=== PATIENT | male | born 1975 | race American Indian/Alaskan Native ===

== ENCOUNTER 2018-12-10 19:33 | Emergency (ER) | payer MEDICARE ==
--- NOTE | 2018-12-10 20:52 | Emergency Department Report ---
Blank Doc - Documentation Documentation: This is a 43-year-old male that presents with abdominal pain. Denies any n/v. Stated also has headache. Denies any visual changes. Exam: neuro exam normal. Normal strength. No facial drooping. No one-sided weakness. This initial assessment/diagnostic orders/clinical plan/treatment(s) is/are subject to change based on patient's health status, clinical progression and re- assessment by fellow clinical providers in the ED. Further treatment and workup at subsequent clinical providers discretion. Patient/guardians urged not to elope from the ED as their condition may be serious if not clinically assessed and managed. Initial orders include: 1- Patient sent to [facility] for further evaluation and treatment 2- labs
[2018-12-10 20:54] VITALS: BP 180/110
[2018-12-10 21:26] LABS: Basophils % (Auto) 0.4 % (0.0-1.8); Eosinophils % (Auto) 0.3 % (0.0-4.3); Hematocrit 37.7 % (35.5-45.6); Hemoglobin 12.1 gm/dl (11.8-15.2); Lymphocytes # (Auto) 1.6 K/mm3 (1.2-5.4); Lymphocytes % (Auto) 26.9 % (13.4-35.0); Mean Corpuscular HGB Conc 32 % (32-34); Mean Corpuscular Volume 86 fl (84-94); Monocytes # (Auto) 0.5 K/mm3 (0.0-0.8); Monocytes % (Auto) 8.9 % (0.0-7.3); Platelet Count 192 K/mm3 (140-440); Red Blood Count 4.41 M/mm3 (3.65-5.03); Red Cell Distribution Width 15.5 % (13.2-15.2)
[2018-12-10 21:40] LABS: Alanine Aminotransferase 12 units/L (7-56); Albumin 4.2 g/dL (3.9-5); BUN/Creatinine Ratio 15; Blood Urea Nitrogen 12 mg/dL (9-20); Calcium 9.1 mg/dL (8.4-10.2); Hemolysis Index 2
[2018-12-10 21:52] LABS: Bilirubin,Direct < 0.2 mg/dL (0-0.2)
--- NOTE | 2018-12-10 23:15 | Cat Scan Report ---
PROCEDURE: CT HEAD/BRAIN WO CON TECHNIQUE: Spiral CT imaging of the brain was obtained without the use of IV contrast. HISTORY: headache with HTN COMPARISONS: None FINDINGS: Brain: Brain density appears normal. No evidence of intracranial hemorrhage. No parenchymal hemorr tyrone, mass lesions or mass effect are seen. No abnormal extra-axial fluid collects or masses are see n. Ventricles: Ventricles are normal size and are midline. Bone Windows: No evidence of skull fracture. Paranasal sinuses: There is mild nodularity seen laterally in the right maxillary sinus suggesting sm all polyps or mucous retention cyst. Visualized portions of the paranasal sinuses otherwise appear cl ear. Mastoid air cells: Clear. IMPRESSION: Negative unenhanced CT scan of the brain. Mild paranasal sinus disease as described. This document is electronically signed by Demian Elaine MD., Dec 10 2018 11:13:59 PM ET
[2018-12-11 01:09] LABS: Bilirubin,Urine NEG (Negative); Blood,Urine NEG (Negative); Color,Urine Yellow (Yellow); Mucus,Urine 2+ /HPF; Protein,Urine <15 mg/dL mg/dL (Negative)
--- NOTE | 2018-12-11 01:11 | Emergency Department Report ---
ED ENT HPI - General Chief complaint: Abdominal Pain Stated complaint: POSS HERNIA/JAW & HEAD PAIN Time Seen by Provider: 12/10/18 20:50 Source: patient Mode of arrival: Ambulatory Limitations: No Limitations - History of Present Illness Initial comments: Patient is a 43-year-old -[place] male with a history of gastric bypass and recurring dental caries patient denies abdominal pain of diseases not be seen for abdominal complaints today even though that was stated triage patient states his primary contact complaint is dental pain, states right upper dental pain x 1 week , recurring for past yr but has been unable to see dentist, there is no fever no chills no facial or jaw swelling no stridor no ear or throat pain pt is tolerating po intake without n/v. pt MD complaint: tooth pain Onset/Timin -: week(s) Location: tooth # (3) Severity: moderate Severity scale (0 -10): 5 Quality: aching Consistency: constant Improves with: none Worsens with: eating, other (hot and cold stimuli) Context- Dental: history of dental caries, poor dental care Associated Symptoms: toothache. denies: fever, cough, gum swelling, pain with swallowing, sore throat, tinnitus, hearing loss, discharge from ear, rhinorrhea - Related Data Previous Rx's Medication Instructions Recorded Last Taken Type Chlorhexidine Mouthwash [Peridex] 15 ml MM BID #1 bottle 12/11/18 Unknown Rx Clindamycin [Clindamycin CAP] 300 mg PO Q8H 10 Days #30 cap 12/11/18 Unknown Rx traMADol [Ultram] 50 mg PO Q6HR PRN #12 tablet 12/11/18 Unknown Rx Allergies Allergy/AdvReac Type Severity Reaction Status Date / Time No Known Allergies Allergy Verified 12/10/18 19:38 ED Dental HPI - General Chief complaint: Abdominal Pain Stated complaint: POSS HERNIA/JAW & HEAD PAIN Time Seen by Provider: 12/10/18 20:50 Source: patient Mode of arrival: Ambulatory Limitations: No Limitations - Related Data Previous Rx's Medication Instructions Recorded Last Taken Type Chlorhexidine Mouthwash [Peridex] 15 ml MM BID #1 bottle 12/11/18 Unknown Rx Clindamycin [Clindamycin CAP] 300 mg PO Q8H 10 Days #30 cap 12/11/18 Unknown Rx traMADol [Ultram] 50 mg PO Q6HR PRN #12 tablet 12/11/18 Unknown Rx Allergies Allergy/AdvReac Type Severity Reaction Status Date / Time No Known Allergies Allergy Verified 12/10/18 19:38 ED Review of Systems ROS: Stated complaint: POSS HERNIA/JAW & HEAD PAIN Other details as noted in HPI Constitutional: denies: chills, fever Eyes: denies: eye pain, eye discharge, vision change ENT: dental pain. denies: ear pain, throat pain, hearing loss, epistaxis, congestion Respiratory: denies: cough, shortness of breath, wheezing Cardiovascular: denies: chest pain, palpitations Endocrine: no symptoms reported Gastrointestinal: denies: abdominal pain, nausea, vomiting, diarrhea Genitourinary: denies: urgency, dysuria Musculoskeletal: denies: back pain, joint swelling, arthralgia Skin: denies: rash, lesions Neurological: denies: headache, weakness, paresthesias Psychiatric: denies: anxiety, depression Hematological/Lymphatic: denies: easy bleeding, easy bruising ED Past Medical Hx - Social History Smoking Status: Current Every Day Smoker Substance Use Type: None - Medications Home Medications: Home Medications Medication Instructions Recorded Confirmed Last Taken Type Chlorhexidine Mouthwash [Peridex] 15 ml MM BID #1 bottle 12/11/18 Unknown Rx Clindamycin [Clindamycin CAP] 300 mg PO Q8H 10 Days #30 cap 12/11/18 Unknown Rx traMADol [Ultram] 50 mg PO Q6HR PRN #12 tablet 12/11/18 Unknown Rx ED Physical Exam - General Limitations: No Limitations General appearance: alert, in no apparent distress - Head Head exam: Present: atraumatic, normocephalic, normal inspection - Eye Eye exam: Present: normal appearance, PERRL, EOMI Pupils: Present: normal accommodation - ENT ENT exam: Present: mucous membranes moist - Expanded ENT Exam Expanded Ear exam: Present: normal external inspection Mouth exam: Present: tongue normal. Absent: trismus Teeth exam: Present: dental caries, dental tenderness # (3), other (no focal abscess ). Absent: gingival enlargement Throat exam: Positive: normal inspection. Negative: tonsillar erythema, tonsillomegaly, tonsillar exudate, R peritonsillar mass, L peritonsillar mass - Neck Neck exam: Present: normal inspection, full ROM. Absent: tenderness, meningismus, lymphadenopathy, thyromegaly - Respiratory Respiratory exam: Present: normal lung sounds bilaterally. Absent: respiratory distress, wheezes, stridor, chest wall tenderness - Cardiovascular Cardiovascular Exam: Present: regular rate, normal rhythm, normal heart sounds. Absent: systolic murmur, diastolic murmur, rubs, gallop - GI/Abdominal GI/Abdominal exam: Present: soft, normal bowel sounds. Absent: distended, tenderness, guarding, rebound, rigid, bruit, pulsatile mass, hernia - Expanded GI/Abdominal Exam Expanded GI/Abdominal exam: Absent: psoas sign, obturator sign, heel tap sign, Chandler's sign, Rovsing's sign, tenderness at [place]'s Point, ascites - Rectal Rectal exam: Present: deferred - Extremities Exam Extremities exam: Present: normal inspection, full ROM, normal capillary refill. Absent: tenderness, pedal edema, joint swelling - Back Exam Back exam: Present: normal inspection, full ROM, muscle spasm. Absent: tenderness, CVA tenderness (R), CVA tenderness (L), paraspinal tenderness, vertebral tenderness, rash noted - Neurological Exam Neurological exam: Present: alert, oriented X3, CN II-XII intact, normal gait, reflexes normal. Absent: motor sensory deficit - Psychiatric Psychiatric exam: Present: normal affect, normal mood - Skin Skin exam: Present: warm, dry, intact, normal color. Absent: rash ED Course Vital Signs 12/10/18 12/10/18 20:04 20:51 Temperature 98.9 F 98.9 F Pulse Rate 75 75 Respiratory 18 18 Rate Blood Pressure 180/110 180/110 O2 Sat by Pulse 98 98 Oximetry ED Medical Decision Making - Lab Data Result diagrams: 12/10/18 20:56 12/10/18 20:56 Labs 12/10/18 12/10/18 12/11/18 20:56 20:56 00:36 WBC 5.9 RBC 4.41 Hgb 12.1 Hct 37.7 MCV 86 MCH 28 MCHC 32 RDW 15.5 H Plt Count 192 Lymph % (Auto) 26.9 [place] % (Auto) 8.9 H Eos % (Auto) 0.3 Baso % (Auto) 0.4 Lymph # 1.6 [place] # 0.5 Eos # 0.0 Baso # 0.0 Seg Neutrophils % 63.5 Seg Neutrophils # 3.8 Sodium 142 Potassium 4.6 Chloride 101.9 Carbon Dioxide 30 Anion Gap 15 BUN 12 Creatinine 0.8 Estimated GFR > 60 BUN/Creatinine Ratio 15 Glucose 105 H Calcium 9.1 Total Bilirubin 0.20 Direct Bilirubin < 0.2 Indirect Bilirubin 0.0 AST 16 ALT 12 Alkaline Phosphatase 99 Total Protein 7.9 Albumin 4.2 Albumin/Globulin Ratio 1.1 Lipase 24 Urine Color Yellow Urine Turbidity Slightly-cloudy Urine pH 5.0 Ur Specific [place] 1.028 Urine Protein <15 mg/dl Urine Glucose (UA) Neg Urine Ketones Tr Urine Blood Neg Urine Nitrite Neg Urine Bilirubin Neg Urine Urobilinogen 2.0 Ur Leukocyte Esterase Neg Urine WBC (Auto) 12.0 H Urine RBC (Auto) 2.0 U Epithel Cells (Auto) 6.0 Urine Mucus 2+ - Medical Decision Making this is infected dental carries without abscess to #3 plan, clindamycin , ultram, peridex, follow up with dentist in 2-3 days pt verbalized agreement and understanding of discharge plan, pt is tolerating po intake will folllow up with dentist tomorrow , given referral to [facility]. pt dc'd to home in stable condition at this time. Critical care attestation.: If time is entered above; I have spent that time in minutes in the direct care of this critically ill patient, excluding procedure time. ED Disposition Clinical Impression: Infected dental carries Disposition: DC-01 TO HOME OR SELFCARE Is pt being admited?: No Does the pt Need Aspirin: No Condition: Stable Instructions: Dental Caries (ED) Prescriptions: Clindamycin [Clindamycin CAP] 300 mg PO Q8H 10 Days #30 cap Chlorhexidine Mouthwash [Peridex] 15 ml MM BID #1 bottle traMADol [Ultram] 50 mg PO Q6HR PRN #12 tablet PRN Reason: Pain Referrals: PRIMARY CARE, [Primary Care Provider] - 3-5 Days [facility] [Outside] - 3-5 Days Forms: Work/School Release Form(ED) Time of Disposition: 01:25
[2018-12-11] MEDS ORDERED: ULTRAM PO ONE (01:39)
[2018-12-11] MEDS ORDERED: IBUPROFEN PO ONE ×3 (01:41→01:43)
[2018-12-11] MEDS ORDERED: ULTRAM ONE (01:41)
== END 2018-12-11 01:45 | disposition home or self-care (01) ==
LOC: ED 19:33
DX: K02.9 Dental caries, unspecified (principal); F17.200 Nicotine dependence, unspecified, uncomplicated
CPT/HCPCS: 36415; 70450; 80048; 80076; 81001; 82962; 83690; 85025; 99284

== ENCOUNTER 2019-02-02 17:17 | Emergency (ER) | payer MEDICARE ==
[2019-02-02 18:12] LABS: Basophils % (Auto) 0.3 % (0.0-1.8); Eosinophils % (Auto) 0.1 % (0.0-4.3); Hematocrit 35.8 % (35.5-45.6); Hemoglobin 11.5 gm/dl (11.8-15.2); Lymphocytes % (Auto) 9.3 % (13.4-35.0); Mean Corpuscular HGB Conc 32 % (32-34); Mean Corpuscular Volume 87 fl (84-94); Monocytes # (Auto) 0.5 K/mm3 (0.0-0.8); Monocytes % (Auto) 4.3 % (0.0-7.3); Platelet Count 198 K/mm3 (140-440); Red Blood Count 4.09 M/mm3 (3.65-5.03); Red Cell Distribution Width 16.2 % (13.2-15.2)
[2019-02-02 18:35] LABS: Alanine Aminotransferase 16 units/L (7-56); BUN/Creatinine Ratio 16; Blood Urea Nitrogen 13 mg/dL (9-20); Calcium 8.6 mg/dL (8.4-10.2); Hemolysis Index 2
[2019-02-02] MEDS ORDERED: NORCO 5/325 PO ONE (19:33)
--- NOTE | 2019-02-02 19:38 | Emergency Department Report ---
HPI - General Chief Complaint: Abdominal Pain Time Seen by Provider: 02/02/19 19:21 - HPI HPI: Room 22 The patient is a 43-year-old male presenting with chief complaint abdominal pain. Patient states he had a hernia repair in 2011. The patient states for the last week whenever he lifts heavy objects he feels pain in the central abdomen or his umbilicus was before surgery. The patient states that one time he noticed drainage of brown bloody fluid from his previous surgical site. Patient denies nausea vomiting or fever. Patient states his last bowel movement occurred today and was within normal limits. Patient denied bright red blood per rectum. The patient states he feels like the right side of the surgical scar is getting bigger than the left. Patient currently gives his abdominal pain a score of 7/10 Location: [See above] Duration: [See above] Quality: [See above] Severity: [See above] Modifying factors: [see above] Context: [see above] Mode of transportation: [not driving] ED Past Medical Hx - Past Medical History Previous Medical History?: Yes Hx Hypertension: Yes - Surgical History Past Surgical History?: Yes Additional Surgical History: hernia repair 2011. gastric bypass - Family History Family history: no significant - Social History Smoking Status: Current Every Day Smoker (1 pack per day) Substance Use Type: None (denies illicit drug use), Alcohol (frequently) - Medications Home Medications: Home Medications Medication Instructions Recorded Confirmed Last Taken Type Chlorhexidine Mouthwash [Peridex] 15 ml MM BID #1 bottle 12/11/18 Unknown Rx Clindamycin [Clindamycin CAP] 300 mg PO Q8H 10 Days #30 cap 12/11/18 Unknown Rx amLODIPine [Norvasc] 10 mg PO DAILY #30 tab 12/11/18 Unknown Rx traMADol [Ultram] 50 mg PO Q6HR PRN #12 tablet 12/11/18 Unknown Rx Ciprofloxacin HCl [Ciprofloxacin 500 mg PO Q12HR #14 tab 02/02/19 Unknown Rx TAB] traMADol [Ultram] 50 mg PO Q6HR PRN #14 tablet 02/02/19 Unknown Rx ED Review of Systems ROS: Stated complaint: ABD PAIN Other details as noted in HPI Constitutional: no symptoms reported Eyes: denies: eye pain ENT: denies: throat pain Respiratory: no symptoms reported Cardiovascular: denies: chest pain Endocrine: no symptoms reported Gastrointestinal: abdominal pain. denies: nausea, vomiting, diarrhea Genitourinary: denies: dysuria Musculoskeletal: denies: back pain Neurological: denies: headache Psychiatric: denies: depression Physical Exam - Physical Exam Vital Signs: Vital Signs 02/02/19 17:36 Temperature 99.3 F Pulse Rate 91 H Respiratory 18 Rate Blood Pressure 162/106 O2 Sat by Pulse 94 Oximetry Physical Exam: GENERAL: The patient is well-developed well-nourished male lying on stretcher not appear to be in acute distress. [] HEENT: Normocephalic. Atraumatic. Extraocular motions are intact. Patient has moist mucous membranes. NECK: Supple. Trachea midline CHEST/LUNGS: Clear to auscultation. There is no respiratory distress noted. HEART/CARDIOVASCULAR: Regular. There is no tachycardia. There is no gallop rub or murmur. ABDOMEN: Abdomen is soft, nontender. Patient has normal bowel sounds. There is no abdominal distention. Subcutaneous mass possibly scar tissue on the central surgical site. No definite hernia palpated SKIN: There is a circular region of the previous surgical site in the central abdomen that appears irritated. No discharge present. There is no diaphoresis. NEURO: The patient is awake, alert, and oriented. The patient is cooperative. The patient has normal speech MUSCULOSKELETAL: There is no evidence of acute injury. ED Course Vital Signs 02/02/19 17:36 Temperature 99.3 F Pulse Rate 91 H Respiratory 18 Rate Blood Pressure 162/106 O2 Sat by Pulse 94 Oximetry ED Medical Decision Making - Lab Data Result diagrams: 02/02/19 17:57 02/02/19 17:57 Laboratory Tests 02/02/19 02/02/19 02/02/19 17:57 17:57 19:50 WBC 10.8 RBC 4.09 Hgb 11.5 L Hct 35.8 MCV 87 MCH 28 MCHC 32 RDW 16.2 H Plt Count 198 Lymph % (Auto) 9.3 L [place] % (Auto) 4.3 Eos % (Auto) 0.1 Baso % (Auto) 0.3 Lymph # 1.0 L [place] # 0.5 Eos # 0.0 Baso # 0.0 Seg Neutrophils % 86.0 H Seg Neutrophils # 9.2 H Sodium 138 Potassium 4.1 Chloride 99.2 Carbon Dioxide 26 Anion Gap 17 BUN 13 Creatinine 0.8 Estimated GFR > 60 BUN/Creatinine Ratio 16 Glucose 67 L Calcium 8.6 Total Bilirubin 0.90 AST 22 ALT 16 Alkaline Phosphatase 95 Total Protein 7.4 Albumin 4.0 Albumin/Globulin Ratio 1.2 Urine Color Yellow Urine Turbidity Clear Urine pH 6.0 Ur Specific [place] 1.016 Urine Protein <15 mg/dl Urine Glucose (UA) Neg Urine Ketones 20 Urine Blood Neg Urine Nitrite Neg Urine Bilirubin Neg Urine Urobilinogen 2.0 Ur Leukocyte Esterase Neg Urine WBC (Auto) 1.0 Urine RBC (Auto) 2.0 U Epithel Cells (Auto) 1.0 Urine Mucus Few - Radiology Data Radiology results: report reviewed (CT abdomen and pelvis), image reviewed (CT abdomen and pelvis) [facility] [address] [place] [address] Cat Scan Report Signed Patient: MILA CRUMP MR#: [id number] [birth year] : 1975 Acct:[id number] Age/Sex: 43 / M ADM Date: 02/02/19 Loc: ED Attending Dr: Ordering Physician: JEROME MICHAELS MD Date of Service: 02/02/19 Procedure(s): CT abdomen pelvis w con Accession Number(s): [id number] cc: JEROME MICHAELS MD CT ABDOMEN AND PELVIS WITH CONTRAST HISTORY: central abdominal pain when lifting heavy objects. Patient has a history of umbilical hernia surgery in 2011 and also gastric bypass in 2007. COMPARISON: None. TECHNIQUE: CT images of the abdomen and pelvis were obtained following administration of intravenous contrast. All CT scans at this location are performed using CT dose reduction for ALARA by means of automated exposure control. CONTRAST: 100 ml of intravenous contrast administered. FINDINGS: Lungs/bones: There are a cluster of nodules in the right base notable for a 7 mm nodule on image #1 of series #2 and an adjacent calcified granuloma which is punctate. Lung bases are otherwise clear. There is mild DJD in the spine with no acute osseous abnormality identified. Abdomen/pelvis: The liver is enlarged with no discrete mass identified. The gallbladder is surgically absent. The spleen, pancreas, adrenals, and kidneys appear unremarkable. Gastric bypass changes are present. The proximal GI tract otherwise appears unremarkable. There is a small midline ventral fat-containing hernia with no significant i nflammatory change identified. Urinary bladder is partially collapsed. Prostate is unremarkable. No pelvic free fluid or acute colonic abnormality identified. The appendix is normal. IMPRESSION: 1. Small supraumbilical midline ventral wall hernia containing fat. No significant inflammatory change. 2. Additional incidental findings as above including a cluster of nodules in the right lung base measuring up to 7 mm. Given the clustering and mild surrounding groundglass, these findings are most likely infectious/inflammatory; however, follow-up to resolution recommended given nodularity. Signer Name: David Smalls MD Signed: 02/02/2019 8:21 PM Workstation Name: [id number] Transcribed By: BONITA Dictated By: David Smalls MD Electronically Authenticated By: David Smalls MD Signed Date/Time: 02/02/192020 DD/ 14 TD/TT: - Differential Diagnosis gastritis, hernia, Critical care attestation.: If time is entered above; I have spent that time in minutes in the direct care of this critically ill patient, excluding procedure time. ED Disposition Clinical Impression: Ventral hernia, Cellulitis of abdominal wall Disposition: DC-01 TO HOME OR SELFCARE Is pt being admited?: No Does the pt Need Aspirin: No Condition: Stable Instructions: Ventral Hernia (ED) Additional Instructions: Return to the emergency department immediately should you develop worsening symptoms, fever, inability to tolerate food or liquid or any other concerns. Prescriptions: Ciprofloxacin HCl [Ciprofloxacin TAB] 500 mg PO Q12HR #14 tab traMADol [Ultram] 50 mg PO Q6HR PRN #14 tablet PRN Reason: Pain Referrals: [facility] MD AZIZA [Primary Care Provider] - 3-5 Days FERNANDO SEGURA MD [Staff Physician] - 3-5 Days (Dr Segura is a general surgeon. Please follow up with him for further evaluation of your hernia) Time of Disposition: 20:37
[2019-02-02 20:21] LABS: Bilirubin,Urine NEG (Negative); Blood,Urine NEG (Negative); Color,Urine Yellow (Yellow); Mucus,Urine FEW /HPF; Protein,Urine <15 mg/dL mg/dL (Negative)
--- NOTE | 2019-02-02 20:25 | Cat Scan Report ---
CT ABDOMEN AND PELVIS WITH CONTRAST HISTORY: central abdominal pain when lifting heavy objects. Patient has a history of umbilical herni a surgery in 2012 and also gastric bypass in 2008. COMPARISON: None. TECHNIQUE: CT images of the abdomen and pelvis were obtained following administration of intravenous contrast. All CT scans at this location are performed using CT dose reduction for ALARA by means of automated exposure control. CONTRAST: 100 ml of intravenous contrast administered. FINDINGS: Lungs/bones: There are a cluster of nodules in the right base notable for a 7 mm nodule on image #1 of series #2 and an adjacent calcified granuloma which is punctate. Lung bases are otherwise clear. There is mild DJD in the spine with no acute osseous abnormality identified. Abdomen/pelvis: The liver is enlarged with no discrete mass identified. The gallbladder is surgicall y absent. The spleen, pancreas, adrenals, and kidneys appear unremarkable. Gastric bypass changes are present. The proximal GI tract otherwise appears unremarkable. There is a small midline ventral fat-containing hernia with no significant inflammatory change identi fied. Urinary bladder is partially collapsed. Prostate is unremarkable. No pelvic free fluid or acute colonic abnormality identified. The appendix is normal. IMPRESSION: 1. Small supraumbilical midline ventral wall hernia containing fat. No significant inflammatory foley e. 2. Additional incidental findings as above including a cluster of nodules in the right lung base padmini uring up to 7 mm. Given the clustering and mild surrounding groundglass, these findings are most like ly infectious/inflammatory; however, follow-up to resolution recommended given nodularity. Signer Name: David Smalls MD Signed: 02/02/2019 8:21 PM Workstation Name: [id number]
[2019-02-02 21:21] VITALS: BP 153/99
== END 2019-02-02 20:55 | disposition home or self-care (01) ==
LOC: ED 17:17
DX: K43.9 Ventral hernia without obstruction or gangrene (principal); L03.311 Cellulitis of abdominal wall; I10 Essential (primary) hypertension; F17.210 Nicotine dependence, cigarettes, uncomplicated; Z79.899 Other long term (current) drug therapy
CPT/HCPCS: 36415; 74177; 80053; 81001; 85025; 99284; Q9967

== ENCOUNTER 2019-02-10 13:24 | Emergency (ER) | payer MEDICARE ==
[2019-02-10] MEDS ORDERED: NACL 0.9% 1000 ML 1,000 ML IV ONE (14:01)
[2019-02-10] MEDS ORDERED: MORPHINE IV ONE (14:01)
[2019-02-10] MEDS ORDERED: ZOFRAN IV ONE (14:01)
--- NOTE | 2019-02-10 14:29 | Emergency Department Report ---
ED Abdominal Pain HPI - General Chief Complaint: Abdominal Pain Stated Complaint: ABD PAIN Time Seen by Provider: 02/10/19 13:42 Source: EMS Mode of arrival: Stretcher Limitations: No Limitations - History of Present Illness Initial Comments: 43-year-old male with history of hypertension, diabetes status post gastric bypass surgery and hernia repair surgery several years ago presents to ED with periumbilical abdominal pain. Patient was seen approximately one week ago for same abdominal pain. CT that time that showed small supraumbilical midline ve ntral hernia containing fat with no significant inflammatory change. Patient says pain has been progressively worsening since he was seen in the ER. Patient followed up with surgeon, Dr. Segura, 2 days ago. States at that time, Dr Segura stated that he would be unable to care for him appropriately (pt is unsure why) and referred him to another surgeon. Appointment scheduled for February 26. MD Complaint: abdominal pain -: week(s) (2) Location: periumbilical Radiation: none Migration to: no migration Severity: severe Severity scale (0 -10): 6 Quality: aching, sharp Consistency: constant Improves With: nothing Worsens With: nothing Associated Symptoms: diarrhea. denies: nausea, vomiting, fever, constipation - Related Data Previous Rx's Medication Instructions Recorded Last Taken Type Chlorhexidine Mouthwash [Peridex] 15 ml MM BID #1 bottle 12/11/18 Unknown Rx Clindamycin [Clindamycin CAP] 300 mg PO Q8H 10 Days #30 cap 12/11/18 Unknown Rx amLODIPine [Norvasc] 10 mg PO DAILY #30 tab 12/11/18 Unknown Rx traMADol [Ultram] 50 mg PO Q6HR PRN #12 tablet 12/11/18 Unknown Rx Ciprofloxacin HCl [Ciprofloxacin 500 mg PO Q12HR #14 tab 02/02/19 Unknown Rx TAB] traMADol [Ultram] 50 mg PO Q6HR PRN #14 tablet 02/02/19 Unknown Rx HYDROcodone/APAP 5-325 [[place] 1 each PO Q6HR PRN #10 tablet 02/10/19 Unknown Rx 5/325] Allergies Allergy/AdvReac Type Severity Reaction Status Date / Time No Known Allergies Allergy Verified 02/10/19 13:38 ED Review of Systems ROS: Stated complaint: ABD PAIN Other details as noted in HPI Comment: All other systems reviewed and negative Constitutional: denies: chills, fever Gastrointestinal: abdominal pain, diarrhea. denies: nausea, vomiting, constipation ED Past Medical Hx - Past Medical History Previous Medical History?: Yes Hx Hypertension: Yes - Surgical History Past Surgical History?: Yes Additional Surgical History: hernia repair 2012. gastric bypass - Social History Smoking Status: Current Every Day Smoker Substance Use Type: Alcohol - Medications Home Medications: Home Medications Medication Instructions Recorded Confirmed Last Taken Type Chlorhexidine Mouthwash [Peridex] 15 ml MM BID #1 bottle 12/11/18 Unknown Rx Clindamycin [Clindamycin CAP] 300 mg PO Q8H 10 Days #30 cap 12/11/18 Unknown Rx amLODIPine [Norvasc] 10 mg PO DAILY #30 tab 12/11/18 Unknown Rx traMADol [Ultram] 50 mg PO Q6HR PRN #12 tablet 12/11/18 Unknown Rx Ciprofloxacin HCl [Ciprofloxacin 500 mg PO Q12HR #14 tab 02/02/19 Unknown Rx TAB] traMADol [Ultram] 50 mg PO Q6HR PRN #14 tablet 02/02/19 Unknown Rx HYDROcodone/APAP 5-325 [[place] 1 each PO Q6HR PRN #10 tablet 02/10/19 Unknown Rx 5/325] ED Physical Exam - General Limitations: No Limitations General appearance: alert, in no apparent distress - Head Head exam: Present: atraumatic, normocephalic - Eye Eye exam: Present: normal appearance - ENT ENT exam: Present: mucous membranes moist - Neck Neck exam: Present: normal inspection - Respiratory Respiratory exam: Present: normal lung sounds bilaterally. Absent: respiratory distress - Cardiovascular Cardiovascular Exam: Present: regular rate, normal rhythm - GI/Abdominal GI/Abdominal exam: Present: soft, tenderness (periumbilical). Absent: distended - Extremities Exam Extremities exam: Present: normal inspection - Neurological Exam Neurological exam: Present: alert, oriented X3 - Psychiatric Psychiatric exam: Present: normal affect, normal mood - Skin Skin exam: Present: warm, dry, intact, normal color ED Course Vital Signs 02/10/19 02/10/19 02/10/19 13:39 13:53 13:55 Temperature 97.8 F Pulse Rate 72 69 Respiratory 16 16 Rate Blood Pressure 196/126 Blood Pressure 147/100 [Right] O2 Sat by Pulse 99 Oximetry 02/10/19 02/10/19 16:33 17:34 Temperature 97.6 F Pulse Rate 60 76 Respiratory 18 18 Rate Blood Pressure Blood Pressure 123/82 123/82 [Right] O2 Sat by Pulse 98 Oximetry ED Medical Decision Making - Lab Data Result diagrams: 02/10/19 14:24 02/10/19 14:24 - Radiology Data Radiology results: report reviewed, image reviewed - Medical Decision Making 43 yo M w/ abdominal pain, ventral hernia. Labs normal. Vitals normal. No emesis, pt reported diarrhea. CT shows no change in hernia, only fat- containing. No bowel obstruction present. Edema present in abdominal wall. Pt advised to f/u outpt. Return precautions given. - Differential Diagnosis gastroenteritis, bowel obstruction, hernia Critical care attestation.: If time is entered above; I have spent that time in minutes in the direct care of this critically ill patient, excluding procedure time. ED Disposition Clinical Impression: Abdominal pain Disposition: DC-01 TO HOME OR SELFCARE Is pt being admited?: No Condition: Stable Instructions: Abdominal Pain (ED) Prescriptions: HYDROcodone/APAP 5-325 [[place] 5/325] 1 each PO Q6HR PRN #10 tablet PRN Reason: Pain Referrals: JOSEPH SRERANO MD [Staff Physician] - 3-5 Days Forms: Work/School Release Form(ED) Time of Disposition: 17:10
[2019-02-10 14:41] LABS: Basophils % (Auto) 0.4 % (0.0-1.8); Eosinophils % (Auto) 0.5 % (0.0-4.3); Hematocrit 33.1 % (35.5-45.6); Hemoglobin 10.9 gm/dl (11.8-15.2); Lymphocytes # (Auto) 0.7 K/mm3 (1.2-5.4); Lymphocytes % (Auto) 14.1 % (13.4-35.0); Mean Corpuscular HGB Conc 33 % (32-34); Mean Corpuscular Volume 88 fl (84-94); Monocytes # (Auto) 0.4 K/mm3 (0.0-0.8); Monocytes % (Auto) 8.8 % (0.0-7.3); Platelet Count 213 K/mm3 (140-440); Red Blood Count 3.77 M/mm3 (3.65-5.03); Red Cell Distribution Width 16.2 % (13.2-15.2)
[2019-02-10 15:04] LABS: Alanine Aminotransferase 12 units/L (7-56); Albumin 3.6 g/dL (3.9-5); Blood Urea Nitrogen 18 mg/dL (9-20)
[2019-02-10 15:27] LABS: Bilirubin,Urine NEG (Negative); Blood,Urine NEG (Negative); Color,Urine Yellow (Yellow); Mucus,Urine 1+ /HPF; Protein,Urine <15 mg/dL mg/dL (Negative); Urobilinogen,Urine < 2.0 mg/dL (<2.0)
--- NOTE | 2019-02-10 15:39 | Cat Scan Report ---
CT ABDOMEN AND PELVIS WITH IV CONTRAST INDICATION: Diffuse abdominal pain. COMPARISON: None available. TECHNIQUE: Axial CT images were obtained through the abdomen and pelvis after 100 mm IV contrast. All CT scans a t this location are performed using CT dose reduction for ALARA by means of automated exposure contro l. FINDINGS -- ABDOMEN: Lung Bases: No change since the exam earlier this week. Liver: Normal. Gallbladder: Removed. Bile Ducts: Normal. Pancreas: Normal. Spleen: Normal. Adrenals: Normal. Right Kidney and Proximal Ureter: Normal. Left Kidney and Proximal Ureter: Normal. Stomach and Bowel: Normal. Lymph Nodes: No significant adenopathy. Aorta: No significant abnormality. IVC: Normal. Additional Findings: No change in ventral hernia, fat-containing. Worsening anasarca in the interim F INDINGS -- PELVIS: Urinary Bladder and Distal Ureters: Normal. Reproductive Organs: No change Appendix: Not well identified. Bowel: Nonobstructed. No significant new abnormality Free Fluid: Minimal free pelvic fluid. Lymph Nodes: No significant adenopathy. Additional Findings: None. Skeletal System: No acute abnormality. IMPRESSION: Worsening diffuse body wall anasarca since 02/02/2019. Otherwise, no change. No bowel obstruction. Signer Name: Tomi Sauceda MD Signed: 02/10/2019 3:35 PM Workstation Name: [id number]
[2019-02-10 16:05] LABS: Calcium 8.6 mg/dL (8.4-10.2); Hemolysis Index 2
[2019-02-10 16:14] LABS: BUN/Creatinine Ratio 20
[2019-02-10 16:34] VITALS: BP 123/82
== END 2019-02-10 17:34 | disposition home or self-care (01) ==
LOC: ED 13:24
DX: K43.9 Ventral hernia without obstruction or gangrene (principal); R19.7 Diarrhea, unspecified; R60.0 Localized edema; I10 Essential (primary) hypertension; F17.200 Nicotine dependence, unspecified, uncomplicated; Z79.899 Other long term (current) drug therapy; Z98.890 Other specified postprocedural states
CPT/HCPCS: 36415; 74177; 80053; 81001; 83690; 85025; 96361; 96374; 96375; 99284; J2270; J2405; J7030; Q9967

== ENCOUNTER 2019-06-21 00:40 | Emergency (ER) | payer MEDICARE ==
[2019-06-21 06:15] VITALS: BP 116/71
--- NOTE | 2019-06-21 06:28 | Emergency Department Report ---
Chief Complaint: Abdominal Pain Stated Complaint: GASTRIC PAIN Time Seen by Provider: 06/21/19 06:23 - HPI History of Present Illness: is a 43 yo male with hx of diabetes mellitus, gastric bypass 2007, hernia repair 2011 who who presents with chronic non-healing wound at the umbilicus.bilicus. In November and January he has had 2 courses of antibiotics without improvement. I strongly encouraged him to see his primary physician Dr. Carson Garcia for referral to wound care and barrel bander. Medical screening exam performed and completed. On examination there is mild ulceration of surgical scar without surrounding cellulitis. No indication of sepsis. No evidence of acute emergent condition which needs further intervention or evaluation. - Exam Vital Signs: Vital Signs 06/21/19 06/21/19 06/21/19 00:48 06:13 06:15 Temperature 97.7 F Pulse Rate 67 60 Respiratory 18 Rate Blood Pressure 126/78 116/71 O2 Sat by Pulse 100 100 Oximetry MSE screening note: Focused history and physical exam performed. Due to findings the following was ordered: ED Disposition for MSE Clinical Impression: Non-healing wound Disposition: - MED SCREENING EXAM-LEFT Condition: Stable Additional Instructions: Please see your primary physician for referral to wound care and barrel bander. Referrals: CARSON GARCIA MD [Staff Physician] - 3-5 Days
== END 2019-06-21 06:45 | disposition home or self-care (01) ==
LOC: ED 00:40
DX: T81.89XA Other complications of procedures, not elsewhere classified, initial encounter (principal); X58.XXXA Exposure to other specified factors, initial encounter; Y93.89 Activity, other specified; Y92.89 Other specified places as the place of occurrence of the external cause; Y99.8 Other external cause status

== ENCOUNTER 2019-07-05 02:19 | Emergency (ER) | payer MEDICARE ==
[2019-07-05 02:31] VITALS: BP 110/74
[2019-07-05] MEDS ORDERED: AMOXICILLIN 500 MG CAP PO ONE (04:05)
[2019-07-05 04:06] LABS: BUN/Creatinine Ratio 27; Blood Urea Nitrogen 35 mg/dL (9-20); Calcium 9.1 mg/dL (8.4-10.2); Hemolysis Index 73
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
== END 2019-07-05 06:05 | disposition home or self-care (01) ==
LOC: ED 02:19
DX: H10.9 Unspecified conjunctivitis (principal); M62.838 Other muscle spasm; I11.0 Hypertensive heart disease with heart failure; I50.9 Heart failure, unspecified; E11.9 Type 2 diabetes mellitus without complications; F17.200 Nicotine dependence, unspecified, uncomplicated
CPT/HCPCS: 36415; 80048; 99283

== ENCOUNTER 2019-07-09 04:59 | Emergency (ER) | payer MEDICARE ==
[2019-07-09] MEDS ORDERED: ACETAMINOPHEN 325 MG TAB ONE (05:14)
[2019-07-09] MEDS ORDERED: ACETAMINOPHEN 325 MG TAB PO ONE (05:20)
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
[2019-07-09 11:29] VITALS: BP 130/73
== END 2019-07-09 11:25 | disposition home or self-care (01) ==
LOC: ED 04:59
DX: S16.1XXA Strain of muscle, fascia and tendon at neck level, initial encounter (principal); S09.8XXA Other specified injuries of head, initial encounter; I11.0 Hypertensive heart disease with heart failure; I50.9 Heart failure, unspecified; E11.9 Type 2 diabetes mellitus without complications; F17.200 Nicotine dependence, unspecified, uncomplicated; J81.1 Chronic pulmonary edema; Z90.49 Acquired absence of other specified parts of digestive tract; Z98.890 Other specified postprocedural states; Z79.2 Long term (current) use of antibiotics; Z79.899 Other long term (current) drug therapy; Y04.0XXA Assault by unarmed brawl or fight, initial encounter; Y93.89 Activity, other specified; Y92.89 Other specified places as the place of occurrence of the external cause; Y99.8 Other external cause status
CPT/HCPCS: 70450; 70486; 72125

== ENCOUNTER 2019-08-05 23:48 | Emergency (ER) | payer MEDICARE ==
[2019-08-06] VITALS: BP 157/105
== END 2019-08-06 01:15 | disposition left against medical advice (07) ==
LOC: ED 23:48
DX: S09.19XA Other specified injury of muscle and tendon of head, initial encounter (principal); Z53.21 Procedure and treatment not carried out due to patient leaving prior to being seen by health care provider; Z79.899 Other long term (current) drug therapy; X58.XXXA Exposure to other specified factors, initial encounter; Y93.89 Activity, other specified; Y92.89 Other specified places as the place of occurrence of the external cause; Y99.8 Other external cause status
CPT/HCPCS: 82962

== ENCOUNTER 2019-08-09 13:39 | Emergency (ER) | payer MEDICARE ==
--- NOTE | 2019-08-09 15:29 | Event Note ---
ED Screening Note Date of service: 08/09/19 Time: 15:24 ED Screening Note: 43 y/o male comes for headache and right eardrum pain with sounds of crackling. Patient was referred to ENT and neurosurgery. Patient was evaluated at [facility]. Patient has an appointment for his PCP and ENT has not made an appointment with neuro. No discharge from his right ear. This initial assessment/diagnostic orders/clinical plan/treatment(s) is/are subject to change based on patients health status, clinical progression and re- assessment by fellow clinical providers in the ED. Further treatment and workup at subsequent clinical providers discretion. Patient/guardian urged not to elope from the ED as their condition may be serious if not clinically assessed and managed. Initial orders include: 43 y/o male
--- NOTE | 2019-08-09 17:12 | Emergency Department Report ---
<VASHTI MENDOZA MALIHA - Last Filed: 08/09/19 18:59> ED Dizziness HPI - General Chief Complaint: Dizziness Stated Complaint: DIZZY/PAIN Time Seen by Provider: 08/09/19 15:23 Source: patient, EMS Mode of arrival: Ambulatory Limitations: No Limitations - History of Present Illness Initial Comments: This is a 43-year-old -[place] male who presents to the emergency room with headache and dizziness. Patient states he fell in shower and fell unconscious 5 days ago. He was seen at [facility] and diagnosed w ith headache and alcohol intoxication. Patient reports worsening symptoms the next day and followed up at [facility] and diagnosed hematotympanum of right ear, concussion, and subdural hematoma. Patient states he has an appointment with PCP and ENT next week. He is unsuccessful with given appointment with the neurologist and takes his insurance. Patient reports feeling dizzy and worse with movement. He also reports hearing a crackling sound in her right ear. MD Complaint: dizziness -: This morning Description: sense of movement, lightheadedness History of Trauma: Yes (recent diagnosis of subdural hematoma and hematotympanum of right ear) Improves With: remaining still Worsens With: movement, position Associated Symptoms: denies other symptoms - Related Data Previous Rx's Medication Instructions Recorded Last Taken Type Chlorhexidine Mouthwash [Peridex] 15 ml MM BID #1 bottle 12/11/18 Unknown Rx Clindamycin [Clindamycin CAP] 300 mg PO Q8H 10 Days #30 cap 12/11/18 Unknown Rx amLODIPine 10 mg PO DAILY #30 tab 12/11/18 Unknown Rx traMADoL [Ultram] 50 mg PO Q6HR PRN #12 tablet 12/11/18 Unknown Rx Ciprofloxacin HCl [Ciprofloxacin 500 mg PO Q12HR #14 tab 02/02/19 Unknown Rx TAB] traMADoL [Ultram] 50 mg PO Q6HR PRN #14 tablet 02/02/19 Unknown Rx HYDROcodone/APAP 5-325 [[place] 1 each PO Q6HR PRN #10 tablet 02/10/19 Unknown Rx 5/325] Amoxicillin [Amoxicillin TAB] 875 mg PO BID #14 tablet 07/05/19 Unknown Rx Metaxalone [Skelaxin] 800 mg PO BID #20 tablet 07/05/19 Unknown Rx Tobramycin 0.3% [Tobrex] 1 drop OP Q8HR #1 bottle 07/05/19 Unknown Rx tiZANidine [Zanaflex 4mg TAB] 4 mg PO BID PRN #20 tablet 07/05/19 Unknown Rx Acetaminophen/Codeine [Tylenol 1 tab PO Q6H PRN #15 tab 07/09/19 Unknown Rx /Codeine # 3 tab] Ondansetron [Zofran Odt] 4 mg PO Q4HR PRN #20 tab.rapdis 07/09/19 Unknown Rx HYDROcodone/APAP 5-325 [[place] 1 each PO Q6HR PRN #14 tablet 08/09/19 Unknown Rx 5/325] Meclizine [Antivert] 12.5 mg PO BID PRN #10 tablet 08/09/19 Unknown Rx levETIRAcetam [Keppra TAB] 500 mg PO BID #30 tablet 08/09/19 Unknown Rx Allergies Allergy/AdvReac Type Severity Reaction Status Date / Time No Known Allergies Allergy Verified 08/05/19 23:56 ED Review of Systems Constitutional: denies: chills, fever Respiratory: denies: cough, shortness of breath, wheezing Cardiovascular: denies: chest pain, palpitations Gastrointestinal: denies: abdominal pain, nausea, diarrhea Skin: denies: rash, lesions Neurological: headache, vertigo. denies: weakness, paresthesias Psychiatric: denies: anxiety, depression ED Past Medical Hx - Past Medical History Hx Hypertension: Yes Hx Congestive Heart Failure: Yes Hx Diabetes: Yes Additional medical history: Pulmonary Edema - Surgical History Hx Cholecystectomy: Yes Additional Surgical History: hernia repair 2011. gastric bypass, tracheostomy - Social History Smoking Status: Current Every Day Smoker Substance Use Type: Alcohol - Medications Home Medications: Home Medications Medication Instructions Recorded Confirmed Last Taken Type Chlorhexidine Mouthwash [Peridex] 15 ml MM BID #1 bottle 12/11/18 Unknown Rx Clindamycin [Clindamycin CAP] 300 mg PO Q8H 10 Days #30 cap 12/11/18 Unknown Rx amLODIPine 10 mg PO DAILY #30 tab 12/11/18 Unknown Rx traMADoL [Ultram] 50 mg PO Q6HR PRN #12 tablet 12/11/18 Unknown Rx Ciprofloxacin HCl [Ciprofloxacin 500 mg PO Q12HR #14 tab 02/02/19 Unknown Rx TAB] traMADoL [Ultram] 50 mg PO Q6HR PRN #14 tablet 02/02/19 Unknown Rx HYDROcodone/APAP 5-325 [[place] 1 each PO Q6HR PRN #10 tablet 02/10/19 Unknown Rx 5/325] Amoxicillin [Amoxicillin TAB] 875 mg PO BID #14 tablet 07/05/19 Unknown Rx Metaxalone [Skelaxin] 800 mg PO BID #20 tablet 07/05/19 Unknown Rx Tobramycin 0.3% [Tobrex] 1 drop OP Q8HR #1 bottle 07/05/19 Unknown Rx tiZANidine [Zanaflex 4mg TAB] 4 mg PO BID PRN #20 tablet 07/05/19 Unknown Rx Acetaminophen/Codeine [Tylenol 1 tab PO Q6H PRN #15 tab 07/09/19 Unknown Rx /Codeine # 3 tab] Ondansetron [Zofran Odt] 4 mg PO Q4HR PRN #20 tab.rapdis 07/09/19 Unknown Rx HYDROcodone/APAP 5-325 [[place] 1 each PO Q6HR PRN #14 tablet 08/09/19 Unknown Rx 5/325] Meclizine [Antivert] 12.5 mg PO BID PRN #10 tablet 08/09/19 Unknown Rx levETIRAcetam [Keppra TAB] 500 mg PO BID #30 tablet 08/09/19 Unknown Rx ED Physical Exam - General Limitations: No Limitations General appearance: alert, in no apparent distress - Eye Eye exam: Present: normal appearance - ENT ENT exam: Present: mucous membranes moist. Absent: TM's normal bilaterally (right TM nonvisible), normal external ear exam (right ear impacted with dried blood) - Neck Neck exam: Present: normal inspection - Respiratory Respiratory exam: Present: normal lung sounds bilaterally. Absent: respiratory distress - Cardiovascular Cardiovascular Exam: Present: regular rate, normal rhythm. Absent: systolic murmur, diastolic murmur, rubs, gallop - GI/Abdominal GI/Abdominal exam: Present: soft, normal bowel sounds - Neurological Exam Neurological exam: Present: alert, oriented X3 - Psychiatric Psychiatric exam: Present: normal affect, normal mood - Skin Skin exam: Present: warm, dry, intact, normal color. Absent: rash ED Medical Decision Making - Radiology Data Radiology results: report reviewed NONENHANCED CT SCAN OF THE HEAD: INDICATION / CLINICAL INFORMATION: 43 years Male; headache and dizziness. TECHNIQUE: Routine CT head without contrast. All CT scans at this location are performed using CT dose reduction for ALARA by means of automated exposure control. COMPARISON: None. FINDINGS: BRAIN / INTRACRANIAL CONTENTS: Abnormal CT scan. Isodense subdural hematoma is seen in the right frontal region with maximum thickness of 6 mm. No mass effect is seen in the right. Focal areas of vasogenic edema is seen in the inferior right frontal lobe and right temporal lobe with edema extending through the right temporal stem. Though these images could be coup/contrecoup injuries, Please obtain MRI scan with contrast to rule out space taking lesion. Scalp hematoma is seen in the left parieto-occipital region with the surgical clips. These findings are new since 12/10/2018 CRANIOCERVICAL JUNCTION: No significant abnormality. ORBITS: No significant abnormality of visualized orbits. SINUSES / MASTOIDS: No significant abnormality of the visualized paranasal sinuses or mastoid air cells. ADDITIONAL FINDINGS: None. IMPRESSION: Abnormal CT scan 6 mm thick isodense subdural hematoma on the right side Focal areas of vasogenic edema in the inferior right frontal lobe and inferior right temporal lobe; though these could be due to/contrecoup injuries, please obtain MRI scan to rule out space taking lesions ` - Medical Decision Making This patient sustained by this provider. Vitals are stable. Accu-Chek 74. CT of head obtained in dictated by radiologist. CT findings of Abnormal CT scan 6 mm thick isodense subdural hematoma on the right side. Focal areas of vasogenic edema in the inferior right frontal lobe and inferior right temporal lobe; though these could be due to/contrecoup injuries, please obtain MRI scan to rule out space taking lesions. Consulted attending Dr. Jeff. Chart signed to Dr. Jeff. ED Disposition Clinical Impression: Subdural hematoma, Dizziness Disposition: DC-01 TO HOME OR SELFCARE Condition: Stable Additional Instructions: Please call the office of Dr. Kendall on Monday to find out what time and date your appointment is Referrals: BRITTNY KENDALL MD [Referring] - 3-5 Days <DEVANTE JEFF - Last Filed: 08/09/19 19:53> ED Review of Systems ROS: Stated complaint: DIZZY/PAIN Other details as noted in HPI ED Course Vital Signs 08/09/19 08/09/19 08/09/19 15:23 16:08 19:33 Temperature 98 F Pulse Rate 82 Respiratory 18 18 18 Rate Blood Pressure 124/84 O2 Sat by Pulse 99 99 Oximetry - Reevaluation(s) Reevaluation #1: 08/09/19 19:48 Per my physical exam the patient is alert and oriented 3 in no acute distress. Patient is complaining of headache but appears to be stable. Patient is moving all extremities and is currently eating and drinking in the room. I was able to speak with the [facility] transfer line name for me that the patient does have an appointment to see neurosurgery next week. Patient also has a 5 mm subdural on the CT was performed on 08/05/2019. There was some right frontal lobe with vasogenic edema present at that time with no midline shift. This is very consistent with the CT findings that we are seeing today. Spoke with neurosurgery manager online Dr. Bailey who stated this is the patient is neurologically intact and is on complaint is dizziness and headache that the patient could be safely discharged home with improvement of his pain medication regimen. Critical care attestation.: If time is entered above; I have spent that time in minutes in the direct care of this critically ill patient, excluding procedure time. ED Disposition Is pt being admited?: No Does the pt Need Aspirin: No Time of Disposition: 19:53
--- NOTE | 2019-08-09 18:06 | Cat Scan Report ---
NONENHANCED CT SCAN OF THE HEAD: INDICATION / CLINICAL INFORMATION: 43 years Male; headache and dizziness. TECHNIQUE: Routine CT head without contrast. All CT scans at this location are performed using CT dos e reduction for [place] by means of automated exposure control. COMPARISON: None. FINDINGS: BRAIN / INTRACRANIAL CONTENTS: Abnormal CT scan. Isodense subdural hematoma is seen in the right frontal region with maximum thickness of 6 mm. No mas s effect is seen in the right. Focal areas of vasogenic edema is seen in the inferior right frontal lobe and right temporal lobe wit h edema extending through the right temporal stem. Though these images could be coup/contrecoup injur ies, Please obtain MRI scan with contrast to rule out space taking lesion. Scalp hematoma is seen in the left parieto-occipital region with the surgical clips. These findings a re new since 12/10/2018 CRANIOCERVICAL JUNCTION: No significant abnormality. ORBITS: No significant abnormality of visualized orbits. SINUSES / MASTOIDS: No significant abnormality of the visualized paranasal sinuses or mastoid air linda ls. ADDITIONAL FINDINGS: None. IMPRESSION: Abnormal CT scan 6 mm thick isodense subdural hematoma on the right side Focal areas of vasogenic edema in the inferior right frontal lobe and inferior right temporal lobe; t sana these could be due to/contrecoup injuries, please obtain MRI scan to rule out space taking kenni feli Signer Name: Onelia Baugh MD Signed: 08/09/2019 6:01 PM Workstation Name: [id number]
[2019-08-09] MEDS ORDERED: MORPHINE 4 MG/1 ML INJ IV ONE (19:15)
[2019-08-09] MEDS ORDERED: levETIRAcetam 1000 MG/NS 0.75% 1,000 MG/100 ML BAG IV ONE (19:16)
[2019-08-09] MEDS ORDERED: ONDANSETRON 4 MG/2 ML INJ IV ONE (19:16)
[2019-08-09 20:05] VITALS: BP 133/83
== END 2019-08-09 20:04 | disposition home or self-care (01) ==
LOC: ED 13:39
DX: S06.5X9A Traumatic subdural hemorrhage with loss of consciousness of unspecified duration, initial encounter (principal); I11.0 Hypertensive heart disease with heart failure; I50.9 Heart failure, unspecified; E11.9 Type 2 diabetes mellitus without complications; F17.200 Nicotine dependence, unspecified, uncomplicated; Z90.89 Acquired absence of other organs; Z90.49 Acquired absence of other specified parts of digestive tract; Z79.899 Other long term (current) drug therapy; W19.XXXA Unspecified fall, initial encounter; Y93.89 Activity, other specified; Y92.89 Other specified places as the place of occurrence of the external cause; Y99.8 Other external cause status
CPT/HCPCS: 70450; 82962; 96374; 96375; 99284; J1953; J2270; J2405

== ENCOUNTER 2020-01-01 00:13 | Observation (INO) | payer MEDICARE ==
[2020-01-01] MEDS ORDERED: fentaNYL 100 MCG/2 ML INJ IV ONE (00:27)
[2020-01-01] MEDS ORDERED: ONDANSETRON 4 MG/2 ML INJ IV ONE (00:27)
[2020-01-01 01:56] LABS: Basophils % (Auto) 0.6 % (0.0-1.8); Eosinophils % (Auto) 0.3 % (0.0-4.3); Hematocrit 33.7 % (35.5-45.6); Hemoglobin 10.5 gm/dl (11.8-15.2); Lymphocytes # (Auto) 1.5 K/mm3 (1.2-5.4); Lymphocytes % (Auto) 24.9 % (13.4-35.0); Mean Corpuscular HGB Conc 31 % (32-34); Mean Corpuscular Volume 85 fl (84-94); Monocytes # (Auto) 0.4 K/mm3 (0.0-0.8); Monocytes % (Auto) 6.6 % (0.0-7.3); Platelet Count 361 K/mm3 (140-440); Red Blood Count 3.97 M/mm3 (3.65-5.03)
[2020-01-01 01:58] LABS: Alanine Aminotransferase 27 units/L (7-56); Albumin 4.3 g/dL (3.9-5); BUN/Creatinine Ratio 16; Blood Urea Nitrogen 16 mg/dL (9-20); Calcium 8.8 mg/dL (8.4-10.2); Hemolysis Index 7
[2020-01-01 02:57] LABS: Bilirubin,Urine NEG (Negative); Blood,Urine NEG (Negative); Color,Urine Yellow (Yellow); Mucus,Urine FEW /HPF; Protein,Urine <15 mg/dL mg/dL (Negative); RBC,Urine < 1.0 /HPF (0.0-6.0)
[2020-01-01] MEDS ORDERED: ONDANSETRON 4 MG/2 ML INJ IV PRN (04:27)
[2020-01-01] MEDS ORDERED: ACETAMINOPHEN 650 MG RECT SUPP PR PRN (04:30)
[2020-01-01] MEDS ORDERED: MORPHINE 2 MG/1 ML INJ IV PRN (04:30)
[2020-01-01] MEDS ORDERED: DEXTROSE 50% IN WATER (25GM) 50 ML SYRINGE IV PRN (06:03)
[2020-01-01] MEDS: LACTATED RINGERS 1,000 ML IV SCH (11:09)
[2020-01-01] MEDS: INSULIN REGULAR, HUMAN 100 UNITS/1 ML SUB-Q SCH ×4 (15:24→22:12)
[2020-01-01] MEDS ORDERED: ROCURONIUM 50 MG/5 ML INJ IV ONE (17:26)
[2020-01-01] MEDS ORDERED: LIDOCAINE MPF (2%) 20 MG/1 ML VIAL 5 ML ONE (17:26)
[2020-01-01] MEDS ORDERED: SUCCINYLCHOLINE CHLORIDE 200 MG/10 ML INJ MDV ONE (17:26)
[2020-01-01] MEDS ORDERED: HYDROmorphone 1 MG/1 ML INJ ONE (17:26)
[2020-01-01] MEDS ORDERED: propofoL 200 MG/20 ML VIAL IV ONE (17:26)
[2020-01-01] MEDS ORDERED: BUPIVACAINE-EPINEPHRINE/PF 0.25%-1:200,000 (30 ML) VIAL INFILTRATI ONE (17:33)
[2020-01-01] MEDS ORDERED: LIDOCAINE (1%) 10 MG/1 ML VIAL 20 ML MDV ONE (17:33)
[2020-01-01] MEDS ORDERED: LACTATED RINGERS 1,000 ML ONE ×2 (18:06→19:53)
[2020-01-01] MEDS ORDERED: PHENYLEPHRINE/NS 1,000 MCG/10 ML SYRINGE (OR USE) IV ONE (18:47)
[2020-01-01] MEDS ORDERED: SODIUM CHLORIDE 0.9% IRRIG SOLN 3000 ML IR ONE (19:07)
[2020-01-01] MEDS ORDERED: BUPIVACAINE-EPINEPHRINE/PF 0.25%-1:200,000 (10 ML) VIAL INFILTRATI ONE (19:26)
[2020-01-01] MEDS ORDERED: LIDOCAINE (1%) 10 MG/1 ML VIAL 20 ML MDV INFILTRATI ONE (19:27)
[2020-01-01] MEDS ORDERED: PHENYLEPHRINE 10 MG/1 ML INJ SDV ONE (19:29)
[2020-01-01] MEDS ORDERED: SODIUM CHLORIDE 0.9% 100 ML ONE (19:30)
[2020-01-01] MEDS ORDERED: NEOSTIGMINE 10MG/10 ML INJ MDV ONE (19:47)
[2020-01-01] MEDS ORDERED: GLYCOPYRROLATE 0.4 MG/2 ML INJ ONE (19:47)
[2020-01-01] MEDS ORDERED: fentaNYL 100 MCG/2 ML INJ ONE (20:19)
[2020-01-01] MEDS: fentaNYL 100 MCG/2 ML INJ IV PRN ×2 (20:20→20:31)
[2020-01-01] MEDS ORDERED: oxyCODONE /ACETAMINOPHEN 5-325MG TAB PO PRN (21:24)
[2020-01-01] MEDS: KETOROLAC 30 MG/1 ML INJ IV SCH (23:00)
[2020-01-01] MEDS: MORPHINE 2 MG/1 ML INJ IV PRN (23:38)
[2020-01-02] MEDS: LACTATED RINGERS 1,000 ML IV SCH (00:02)
[2020-01-02] MEDS: MORPHINE 2 MG/1 ML INJ IV PRN ×2 (03:18→06:05)
[2020-01-02] MEDS: INSULIN REGULAR, HUMAN 100 UNITS/1 ML SUB-Q SCH ×3 (03:18→15:22)
[2020-01-02] MEDS: KETOROLAC 30 MG/1 ML INJ IV SCH ×2 (03:21→10:27)
[2020-01-02 05:19] LABS: Basophils % (Auto) 0.2 % (0.0-1.8); Eosinophils % (Auto) 0.1 % (0.0-4.3); Hematocrit 26.5 % (35.5-45.6); Hemoglobin 8.6 gm/dl (11.8-15.2); Lymphocytes # (Auto) 0.7 K/mm3 (1.2-5.4); Lymphocytes % (Auto) 8.6 % (13.4-35.0); Mean Corpuscular HGB Conc 33 % (32-34); Mean Corpuscular Volume 85 fl (84-94); Monocytes # (Auto) 0.5 K/mm3 (0.0-0.8); Monocytes % (Auto) 6.2 % (0.0-7.3); Platelet Count 260 K/mm3 (140-440); Red Blood Count 3.11 M/mm3 (3.65-5.03); Red Cell Distribution Width 21.4 % (13.2-15.2)
[2020-01-02 11:35] VITALS: BP 123/94
== END 2020-01-02 16:20 | disposition home health service (06) ==
LOC: ED 00:13 → INTOOBSV 05:08 → IMCU 05:08 → INTOOBSV 15:28 → OBSVTOIN 15:28 → 3B-SURG 20:41
PROVIDERS: ADMIT Internal Medicine; ATTEND Internal Medicine
DX: K46.9 Unspecified abdominal hernia without obstruction or gangrene (principal); R19.7 Diarrhea, unspecified; I11.0 Hypertensive heart disease with heart failure; I50.9 Heart failure, unspecified; E11.9 Type 2 diabetes mellitus without complications; E66.01 Morbid (severe) obesity due to excess calories; Z98.84 Bariatric surgery status; Z68.37 Body mass index [BMI] 37.0-37.9, adult
CPT/HCPCS: 36415; 49652; 74177; 80053; 81001; 82140; 82962; 83690; 85025; 96361; 96374; 96375; 96376; 99285; A4217; G0378; J0330; J1170; J1885; J1956; J2270; J2370; J2405; J2704; J2710; J3010; J7120; Q9967